=== PATIENT | male | born 1960 | race Caucasian/White ===

== ENCOUNTER → 2017-03-07 | Outpatient (CLI) | payer BC ==
[~2017-03-07] MED LIST: ACCUPRIL PO; ALBUTEROL17 GM INH; AMLODIPINE BESYL5 MG PO; ANTIBIOTIC; ASPIRIN81 M1 PO; BAYER CHEWABLE81 MG PO; BP PILL; CRESTOR PO; DICLOFENAC PO; FENOFIBRATE160 MG PO; FISH OIL 1,2001 EAC4 PO; FLEXERIL10 M1 PO; FLEXERIL10 MG PO; FOLIC ACID PO; GLUCOPHAGE500 MG PO; HUMULIN R500 U/ML; HYDROCODON-ACE1 EAC4 PO; IBUPROFEN M200 M1 PO; INSULIN; JARDIANCE10 MG PO; LIPITOR40 MG PO; MEDROL4 MG/DOSE- PO; MOBIC PO; NOVALOG INSULIN; NOVOLOG100 U/M2 SQ; PHENTERMINE HCL15 MG PO; PRILOSEC PO; PRINIVIL20 M1 PO; ROBAXIN PO; SYMBICORT INH; TOPIRAGEN50 MG PO; TRADJENTA5 MG PO; TYLENOL #3 PO; UNKNOWN INSULIN SQ; VITAMIN B12 PO; VITAMIN B6 PO; VOLTAREN75 MG PO
--- NOTE | ~2017-03-07 | MR176 ---
[facility] A Service of [facility] & [facility] RADIOLOGY TEXT RESULTS PATIENT: SAVANNAH JACOB LOCATION: [facility] : 62 UNIT #: [id number] AGE: [address]: Sandy Clements MD SEX: M ORDER DR: [id number] [address] [address] [id number] O MR#: [id number] Acc #: [id number] NAME: SAVANNAH JACOB. : 1960 SEX: M STUDY DATE/TIME: 03/07/2017 9:45 UNIT: [facility] ROOM: STUDY DESCRIPTION: MR Thoracic Wo Contrast Attending Physician: Sandy Clements M.D. Referring Physician: Sandy Clements M.D. Ordering Physician: Sandy Clements M.D. Primary Care Physician: Sandy Clements M.D. MRI CENTER REPORT This report is preliminary unless electronic signature is present. EXAM MRI of the thoracic spine without contrast dated 03/07/2017. COMPARISON MRI lumbar spine without contrast dated 03/07/2017. HISTORY Chronic low back pain for about 7 years. Increased low back pain with extension into the right lower extremity for 3 months. Increased mid back pain with radiation around the anterior aspect for the last 3 months. FINDINGS Multisequence, multiplanar imaging of the thoracic spine was obtained without contrast. There are endplate Schmorl nodes at multiple levels of the mwv-kr-bckcq thoracic spine. Associated mild loss of vertebral body height is noted at T7 and to a lesser degree at T8 and T9. It is chronic-appearing without any edema, fracture lines, or displaced fragments posteriorly or anteriorly. Disc osteophyte complexes are at multiple levels. There is a less than 1 cm fatty signal lesion noted in the posterior mid T9 vertebral body, likely a hemangioma based on statistics. Thoracic cord demonstrates normal expected course, caliber, and signal. Pre and paravertebral soft tissues do not demonstrate any significant abnormality. T1-2: Disc osteophyte complex with mild prominence in the left ijxsuuh-be-wcyfjoptcspd region. This causes mild mass effect on the adjacent thecal sac. No cord compression or neural foraminal narrowing. T2-3: Disc osteophyte complex with small central protrusion and minimal mass effect on the adjacent thecal sac. No neural foraminal narrowing. T3-4: Disc osteophyte complex which is slightly prominent in the left central region. No canal stenosis or neural foraminal narrowing. [facility] A Service of [facility] & [facility] / [facility] RADIOLOGY TEXT RESULTS PATIENT: SAVANNAH JACOB LOCATION: [facility] : 62 UNIT #: [id number] AGE: [address]: aSndy Clements MD SEX: M ORDER DR: T5-6: Disc osteophyte complex which is asymmetrically prominent in the right subarticular region with mild mass effect on the adjacent thecal sac. No neural foraminal narrowing or cord compression. T9-10: Disc osteophyte complex which is asymmetrically prominent in the right subarticular region with mild mass effect on the adjacent thecal sac. No neural foraminal narrowing. T10-11: Disc osteophyte complex which is asymmetrically prominent in the left central to subarticular region suggestive of superimposed protrusion. It causes mild mass effect on the adjacent thecal sac without cord compression. No neural foraminal narrowing. OTHER LEVELS: Mild disc osteophyte complex with facet changes and costovertebral changes are noted without canal stenosis or neural foraminal narrowing. IMPRESSION 1. Multilevel endplate Schmorl nodes are noted with loss of height particularly at T7 and to a lesser degree at T8 and T9. 2. Fatty signal lesion with some edema is seen at T9, likely an atypical hemangioma based on statistics. 3. Cord is unremarkable. 4. Disc osteophyte complexes are at multiple levels, slightly worse at T10-11 and T5-6. Refer above. Dictated by... Donato Menon M.D. THIS IS AN ELECTRONICALLY VERIFIED REPORT Donato Menon M.D. at 03/09/2017 3:22 PM CPR/tmw TD: 03/08/2017 16:11 JOB #: [id number] MRI CENTER REPORT Page 1 of 1
--- NOTE | ~2017-03-07 | MR113 ---
[facility] A Service of [facility] & [facility] RADIOLOGY TEXT RESULTS PATIENT: SAVANNAH JACOB LOCATION: [facility] : 62 UNIT #: [id number] AGE: [address]: Sandy Clements MD SEX: M ORDER DR: [id number] [address] [address] [id number] O MR#: [id number] Acc #: [id number] NAME: SAVANNAH JACOB. : 1960 SEX: M STUDY DATE/TIME: 03/07/2017 10:13 UNIT: [facility] ROOM: STUDY DESCRIPTION: MR Lumbar Wo Contrast Attending Physician: Sandy Clements M.D. Referring Physician: Sandy Clements M.D. Ordering Physician: Sandy Clements M.D. Primary Care Physician: Sandy Clements M.D. MRI CENTER REPORT This report is preliminary unless electronic signature is present. EXAM MRI lumbar spine without contrast dated 03/07/2017. COMPARISON MRI lumbar spine without contrast dated 06/20/2013. HISTORY Chronic low back pain for about 7 years. Increased low back pain with extension into the right lower extremity for 3 months. TECHNIQUE Multisequence multiplanar imaging of the lumbar spine was obtained without contrast. FINDINGS There is a superior endplate Schmorl node at L1. Degenerative disc disease is seen from L2-L3 to L5-S1 and in the lower thoracic levels. Conus terminates at T12-L1. Signal of conus and cauda equina are within normal limits. Pre- and paravertebral soft tissues do not demonstrate any significant abnormality. Increased T2 signal lesion is noted within the anterior mid-left kidney measuring 1.5 cm. In the anterior mid-right kidney, extending from the renal parenchyma to the renal hilum, there is a decreased T2 and increased T1 signal lesion measuring 2.2 x 1.9 cm. It is probably a hemorrhagic and proteinaceous cyst which has increased in size when compared to the prior study from 2012. It measured 1.2 cm and had different signal characteristics. Conus terminates at T12-L1. There is fatty signal in the nerve roots of the cauda equina extending from the level of L1-L2 down into the thecal sac. It is most prominent from the level of L1 extending to L2 where it measures up to 6 x 5 mm in greatest axial dimension. It has a benign appearance. Stable. L1-L2: Unremarkable. [facility] A Service of [facility] & [facility] RADIOLOGY TEXT RESULTS PATIENT: SAVANNAH JACOB LOCATION: [facility] : 62 UNIT #: [id number] AGE: [address]: Sandy Clements MD SEX: M ORDER DR: L2-L3: Concentric disc bulge with superimposed central to left foraminal broad-based protrusion with mild mass effect on the adjacent thecal sac. Mild inferior left neural foraminal encroachment and minimal bilateral facet changes. L3-L4: Concentric disc bulge with superimposed central to left subarticular moderate protrusion. It appears to have a small, inferiorly migrated, extruded component. It is relatively stable given differences in slice selection. There is mild mass effect on the adjacent thecal sac without any significant neural foraminal narrowing. Mild bilateral facet changes. L4-L5: Concentric disc bulge with superimposed central protrusion, mild mass effect on the adjacent thecal sac and Mthv-bv-hqzhgale inferior bilateral neural foraminal narrowing with minimal bilateral facet changes. Stable. L5-S1: Concentric disc bulge which is slightly prominent in the left foraminal to extra-foraminal region with mild inferior left neural foraminal encroachment. Minimal bilateral facet changes are noted without any significant canal stenosis. IMPRESSION 1. Degenerative changes are noted at multiple levels, as described above, relatively stable given the differences in slice selection. 2. Of all of the levels, findings are worse at L3-L4 followed by L2-L3 and L4-L5. 3. Conus terminates at the T12-L1. There is a fatty infiltration of the filum terminale. 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 Stable. 4. Concentric disc bulge is noted at L4-L5 with mild bilateral neural foraminal narrowing. It appears to be mzge-zu-kampwjph on the sagittal images when compared to the axials. Correlate with bilateral L4 radiculopathy. Relatively stable. Dictated by... Donato Menon M.D. THIS IS AN ELECTRONICALLY VERIFIED REPORT Donato Menon M.D. at 03/14/2017 4:07 PM CPR/pcl TD: 03/08/2017 16:26 [facility] A Service of [facility] RADIOLOGY TEXT RESULTS PATIENT: SAVANNAH JACOB LOCATION: [facility] : 62 UNIT #: [id number] AGE: [address]: Sandy Clements MD SEX: M ORDER DR: APRIL #: [id number] MRI CENTER REPORT Page 1 of 1
== END | disposition home or self-care (01) ==
LOC: SMRI 09:25
DX: M48.06 Spinal stenosis, lumbar region (principal); M51.44 Schmorl's nodes, thoracic region; M51.84 Other intervertebral disc disorders, thoracic region; M25.78 Osteophyte, vertebrae; M47.896 Other spondylosis, lumbar region; M51.86 Other intervertebral disc disorders, lumbar region; Z87.39 Personal history of other diseases of the musculoskeletal system and connective tissue
CPT/HCPCS: 72146; 72148

== ENCOUNTER → 2017-03-09 | Day surgery (SDC) | payer BC ==
--- NOTE | ~2017-03-09 | OR ---
Unit #: [id number] #: [id number] Patient: SAVANNAH JACOB [id number] [address] [place], [place] [address] [id number] O MR#: [id number] NAME: SAVANNAH JACOB. ROOM: Date of Procedure: 03/09/2017 Admission Date: 03/09/2017 Surgeon: Sadiq Velasco M.D. : 1960 Attending Physician: Piotr Velasco Primary Care Physician: Sandy Clements M.D. SURGERY CENTER OPERATIVE NOTE JOB NOTE: CC: DR. CLEMENTS PROCEDURE PERFORMED Cervical epidural steroid injection under x-ray guided needle placement. PREOPERATIVE DIAGNOSES 1. Acute cervical radiculitis. 2. Degenerative joint disease, cervical spine. 3. Degenerative disk disease, cervical spine. 4. Spinal stenosis, cervical spine. INDICATIONS FOR PROCEDURE The patient presents today with the years long history of chronic intermittent and cervical radicular pain, which over the course of the past few months has become more chronic in nature with a crescendo pattern, is failed throughout the years to all conservative measures and has now reached the point where it is interfering with his activities of daily living. The patient also states he is having similar problems with his lumbar radiculitis and has been referred to this clinic at some point for lumbar injections by his neurosurgeon, today's referral consult Dr. Clements, his primary care provider. After discussing risks and benefits of proceeding today with empiric epidural steroid injection, obtaining a CT scan and return in 2 weeks for a potential follow on cervical epidural steroid injections, the patient agreed this would be the appropriate course of action. We will also discuss potential follow on lumbar epidural steroid injections if he continues to have intractable pain from his lumbar radiculitis. DESCRIPTION OF PROCEDURE Following these discussions, he was taken to the operating room, where he was prepped and draped in a sterile manner. Standard monitors were applied. He refused all forms of sedation and cervical epidural space accessed at the C5-C6 level using loss of resistance technique and x-ray guidance. Needle placement was confirmed with injection of 2 mL of Omnipaque. There was good superior and inferior flow at the C5-C6 level of injection. Following successful needle placement confirmation at the C5-C6 level which required an x-ray time of 6 seconds, the patient received an injectate containing 2 mL of 0.25% bupivacaine and 80 mg of methylprednisolone. He tolerated this procedure well. He was discharged home with followup instructions, which include return dates as described above. Unit #: [id number] #: [id number] Patient: SAVANNAH JACOB Dictated by... Sadiq Velasco M.D. JRG/modl TD: 03/09/2017 16:19 JOB #: [id number] CC: Mikey Blankenship M.D. SURGERY CENTER OPERATIVE NOTE Page 1 of 1 X Piotr Velasco MD X PROCEDURE OPERATIVE NOTE
== END | disposition home or self-care (01) ==
LOC: CCSC 13:44
DX: G89.29 Other chronic pain (principal); M50.10 Cervical disc disorder with radiculopathy, unspecified cervical region; M47.22 Other spondylosis with radiculopathy, cervical region; M48.02 Spinal stenosis, cervical region; J45.909 Unspecified asthma, uncomplicated; K21.9 Gastro-esophageal reflux disease without esophagitis; F17.210 Nicotine dependence, cigarettes, uncomplicated; Z86.14 Personal history of Methicillin resistant Staphylococcus aureus infection; Z86.73 Personal history of transient ischemic attack (TIA), and cerebral infarction without residual deficits; Z88.0 Allergy status to penicillin; Z79.84 Long term (current) use of oral hypoglycemic drugs; Z79.51 Long term (current) use of inhaled steroids; Z79.899 Other long term (current) drug therapy; Z79.1 Long term (current) use of non-steroidal anti-inflammatories (NSAID)
CPT/HCPCS: 82947; J1040; J2250

== ENCOUNTER → 2017-03-14 | Outpatient (CLI) | payer BC ==
--- NOTE | ~2017-03-14 | CT52 ---
[facility] A Service of [facility] RADIOLOGY TEXT RESULTS PATIENT: SAVANNAH JACOB LOCATION: [facility] : 62 UNIT #: [id number] AGE: [address]: Piotr Velasco MD SEX: M ORDER DR: [id number] [place] [address] [id number] O MR#: [id number] Acc #: [id number] NAME: SAVANNAH JACOB : 1960 SEX: M STUDY DATE/TIME: 03/14/2017 14:55 UNIT: [facility] ROOM: STUDY DESCRIPTION: CT Cervical Spine Wo Cont Attending Physician: Piotr Velasco Referring Physician: Piotr Velasco Ordering Physician: Sadiq Velasco M.D. Primary Care Physician: Sandy Clements M.D. MEDICAL IMAGING REPORT This report is preliminary unless electronic signature is present. EXAM Cervical spine CT, no contrast. Date: 03/14/17 PROCEDURE Axial unenhanced cervical spine CT with multiplanar reformats. This CT exam was performed with one or more of the following radiation dose reduction techniques: automatic exposure control, adjustment of mA and/or kV according to patient size, and iterative reconstruction. COMPARISON None. CLINICAL HISTORY Upper back pain and radiating neck pain for 25 years. FINDINGS Alignment is normal. There is some discogenic degenerative change but no fracture or bone erosion or destruction and the paraspinous tissues are unremarkable. At C2-3 and C3-4, the canal and foramina are normal. At C4-5, there is a slight disc bulge and borderline bilateral foraminal narrowing. There is borderline canal narrowing. At C5-6, there is a right-sided bony ridge and mild right-sided canal stenosis, and minimal bilateral foraminal narrowing. At C6-7, there is a right-sided bony ridge mild right-sided canal stenosis [facility] A Service [facility] RADIOLOGY TEXT RESULTS PATIENT: SAVANNAH JACOB LOCATION: [facility] : 62 UNIT #: [id number] AGE: [address]: Piotr Velasco MD SEX: M ORDER DR: and mild right and borderline to mild bilateral foraminal narrowing. At C7-T1, the canal and foramina are within normal limits. IMPRESSION 1. Degenerative changes at C5-6 and C6-7 and to a lesser C7-T1 with some right-sided canal and secondary right foraminal narrowing at C5-6 and C6-7. 2. Disk protrusion or bulge of C4-5 with mild canal stenosis. No acute findings. Dictated by... Mikey Perez M.D. THIS IS AN ELECTRONICALLY VERIFIED REPORT Mikey Perez M.D. at 03/18/2017 4:54 PM JACLYN/diana TD: 03/15/2017 00:48 JOB #: [id number] MEDICAL IMAGING REPORT Page 1 of 1
== END | disposition home or self-care (01) ==
LOC: SCT 14:15
DX: M50.122 Cervical disc disorder at C5-C6 level with radiculopathy (principal); M50.123 Cervical disc disorder at C6-C7 level with radiculopathy; M48.02 Spinal stenosis, cervical region
CPT/HCPCS: 72125

== ENCOUNTER → 2017-03-28 | Day surgery (SDC) | payer BC ==
--- NOTE | ~2017-03-28 | OR ---
Unit #: [id number] #: [id number] Patient: SAVANNAH JACOB [id number] [address] [address] [id number] O MR#: [id number] NAME: SAVANNAH JACOB ROOM: Date of Procedure: 03/28/2017 Admission Date: 03/28/2017 Surgeon: Sadiq Velasco M.D. : 1960 Attending Physician: Piotr Velasco Referring Physician: Piotr Velasco Primary Care Physician: Sandy Clements M.D. SURGERY CENTER OPERATIVE NOTE PROCEDURE PERFORMED Cervical epidural steroid injection under x-ray guided needle placement. PREOPERATIVE DIAGNOSES 1. Acute cervical radiculitis. 2. Spinal stenosis, cervical spine. 3. Herniated disk, C4-C5, C6-C7, C7-T1. 4. Degenerative joint disease, cervical spine. 5. Degenerative disk disease, cervical spine. INDICATIONS FOR PROCEDURE The patient presents today status post one previous cervical approach epidural steroid injection for an acute radiculitis, which had failed to respond to conservative therapy. He states he got little relief from his initial epidural steroid injection and what relief he did get had not been satisfactory. After discussing risks and benefits of proceeding today with second cervical approach epidural steroid injection, particularly in light of his blood sugar of 460, the patient now agreed that proceeding would be his desired course of action. We also instructed him to follow up with his primary care provider for two reasons, the first reason being that he desires referral for his lumbar epidural steroid injection and we were willing to do lumbar epidurals and actually scheduled him for 04/24/2017, but he should have a referral and precertification prior to those dates by his primary care provider. Also, we told him he needed to discuss his elevated blood sugar with his primary care providers as this seems to indicate poor control. DESCRIPTION OF PROCEDURE Following these discussions, the patient was taken to the operating room, where he was prepped and draped in a sterile manner. Standard monitors were applied. He refused all forms of sedation. The cervical epidural space accessed at the C7-T1 level using loss of resistance technique and x-ray guidance. Needle placement was confirmed with the injection of 2 mL of Omnipaque. There was good superior and inferior flow at the C7-T1 needle placement. Following successful needle placement confirmation, the patient received an injectate containing 4 mL of normal saline and 80 mg of methylprednisolone. He tolerated this procedure well. He was discharged home with followup instructions, which are described above. Dictated by... Sadiq Velasco M.D. Unit #: [id number] #: [id number] Patient: SAVANNAH JACOB G/modl TD: 03/28/2017 12:01 JOB #: [id number] SURGERY CENTER OPERATIVE NOTE Page 1 of 1 X Piotr Velasco MD X PROCEDURE OPERATIVE NOTE
== END | disposition home or self-care (01) ==
LOC: CCSC 07:45
DX: M50.121 Cervical disc disorder at C4-C5 level with radiculopathy (principal); M50.123 Cervical disc disorder at C6-C7 level with radiculopathy; M50.13 Cervical disc disorder with radiculopathy, cervicothoracic region; M48.02 Spinal stenosis, cervical region; J45.909 Unspecified asthma, uncomplicated; K21.9 Gastro-esophageal reflux disease without esophagitis; F17.210 Nicotine dependence, cigarettes, uncomplicated; Z86.73 Personal history of transient ischemic attack (TIA), and cerebral infarction without residual deficits; Z79.899 Other long term (current) drug therapy
CPT/HCPCS: 82947; J1040; J2250